=== PATIENT | male | born 1965 | race Caucasian/White ===

== ENCOUNTER 2017-12-19 01:15 | Emergency (ER) | payer OTHER ==
[2017-12-19 01:45] VITALS: TEMP 98.6; BMI 32.5
[2017-12-19] MEDS ORDERED: SODIUM CHLORIDE 0.9% 1000 ML INFUS.BAG IV ONE (01:56)
[2017-12-19] MEDS ORDERED: ACETAMINOPHEN 325 MG TABLET (FP) PO ONE (01:56)
[2017-12-19] MEDS ORDERED: KETOROLAC TROMETHAMINE 30 MG/1 ML VIAL IVPUSH ONE (01:56)
--- NOTE | 2017-12-19 02:17 | PDOC ---
History of Present Illness - General History Source: Patient Exam Limitations: No Limitations - History of Present Illness Initial Comments: 12/19/17 02:12 The patient is a 52M with a PMH of HTN who presents to the ER with complaints of a headache. The patient states that he's had a gradual-onset headache that has been steadily worsening, located on his b/l temples, without radiation, not associated with photo or phonophobia, without fever, chills, nausea, vomiting, numbness or tingling. He does admit to generalized weakness that started around 1600 yesterday but denies any changes in his diet. He is compliant with his medications. <Fernandez Mccarthy - Last Filed: 12/19/17 03:36> <Bri Gagnon - Last Filed: 12/19/17 04:20> - General Chief Complaint: Headache Stated Complaint: HEADACHE Time Seen by Provider: 12/19/17 01:40 Past History - Suicide/Smoking/Psychosocial Hx Smoking History: Never smoked Have you smoked in the past 12 months: No Information on smoking cessation initiated: No Hx Alcohol Use: No Drug/Substance Use Hx: No <Fernandez Mccarthy - Last Filed: 12/19/17 03:36> <Bri Gagnon - Last Filed: 12/19/17 04:20> - Past Medical History Allergies/Adverse Reactions: Allergies Allergy/AdvReac Type Severity Reaction Status Date / Time No Known Allergies Allergy Verified 12/19/17 02:53 Home Medications: Ambulatory Orders Carvedilol [Coreg -] 12.5 mg PO BID 12/19/17 Nifedipine [Adalat cc] 90 mg PO DAILY 12/19/17 Review of Systems - Review of Systems Able to Perform ROS?: Yes Comments:: 12/19/17 02:16 GENERAL/CONSTITUTIONAL: Positive for weakness. No fever or chills. HEAD, EYES, EARS, NOSE AND THROAT: No change in vision. No ear pain or discharge. No sore throat. CARDIOVASCULAR: No chest pain, palpitations, or lightheadedness. RESPIRATORY: No cough, wheezing, shortness of breath, or hemoptysis. GASTROINTESTINAL: No nausea, vomiting, diarrhea, constipation, or abdominal pain. GENITOURINARY: No dysuria, frequency, hematuria, or change in urination. MUSCULOSKELETAL: No joint or muscle swelling or pain. No neck or back pain. SKIN: No rash or lesions. NEUROLOGIC: Positive for headache. No numbness, tingling, weakness, loss of consciousness, or change in strength/sensation. ENDOCRINE: No increased thirst. No abnormal weight change. HEMATOLOGIC/LYMPHATIC: No anemia, easy bleeding, or history of blood clots. ALLERGIC/IMMUNOLOGIC: No hives or skin allergy. Is the patient limited Hungarian proficient: No <Fernandez Mccarthy - Last Filed: 12/19/17 03:36> *Physical Exam - Vital Signs Last Vital Signs Temp Pulse Resp BP Pulse Ox 98.6 F 83 18 140/79 98 12/19/17 01:42 12/19/17 01:42 12/19/17 01:42 12/19/17 01:42 12/19/17 01:42 - Physical Exam Comments: 12/19/17 02:18 GENERAL: Well developed, well nourished. Awake and alert. No acute distress. HEENT: Normocephalic, atraumatic. Hearing grossly normal. Moist mucous membranes. PERRLA, EOMI. No conjunctival pallor. Sclera are non-icteric. NECK: Supple. Full ROM. No JVD. CARDIOVASCULAR: Regular rate and rhythm. No murmurs, rubs, or gallops. PULMONARY: No evidence of respiratory distress. Lungs clear to auscultation bilaterally. No wheezing, rales or rhonchi. ABDOMINAL: Soft. Non-tender. Non-distended. No rebound or guarding. GENITOURINARY: No CVA tenderness bilaterally. MUSCULOSKELETAL: Normal range of motion at all joints. No bony deformities or tenderness. EXTREMITIES: No cyanosis. No clubbing. No edema. No calf tenderness or swelling. SKIN: Warm and dry. Normal capillary refill. No rashes. No jaundice. NEUROLOGICAL: Alert, awake, appropriate. Cranial nerves 2-12 intact. Normal speech. Gait is normal without ataxia. PSYCHIATRIC: Cooperative. Good eye contact. Appropriate mood and affect. <Fernandez Mccarthy - Last Filed: 12/19/17 03:36> - Vital Signs Last Vital Signs Temp Pulse Resp BP Pulse Ox 98.6 F 83 18 140/79 98 12/19/17 01:42 12/19/17 01:42 12/19/17 01:42 12/19/17 01:42 12/19/17 01:42 <Bri Gagnon - Last Filed: 12/19/17 04:20> ED Treatment Course - LABORATORY CBC & Chemistry Diagram: 12/19/17 02:30 12/19/17 02:30 <Mary LouchristopherFernandez - Last Filed: 12/19/17 03:36> - LABORATORY CBC & Chemistry Diagram: 12/19/17 02:30 12/19/17 02:30 - ADDITIONAL ORDERS Additional order review: Laboratory Results 12/19/17 02:30 Sodium 144 Potassium 4.8 Chloride 116 H Carbon Dioxide 21 Anion Gap 7 L BUN 48 H Creatinine 2.8 H Creat Clearance w eGFR 24.11 Random Glucose 118 H Calcium 7.9 L Total Bilirubin < 0.1 L AST 32 ALT 22 Alkaline Phosphatase 126 H Total Protein 5.9 L Albumin 2.5 L 12/19/17 02:30 RBC 3.18 L MCV 97.2 H MCHC 33.6 RDW 11.8 L MPV 8.2 Neutrophils % 60.5 Lymphocytes % 27.6 Monocytes % 9.3 Eosinophils % 2.2 Basophils % 0.4 - Medications Given in the ED: ED Medications Discontinued Medications Generic Name Dose Route Start Last Admin Trade Name Freq PRN Reason Stop Dose Admin Acetaminophen 650 mg 12/19/17 01:56 12/19/17 02:15 Tylenol - PO 12/19/17 01:57 650 mg ONCE ONE Administration Ketorolac Tromethamine 15 mg 12/19/17 01:56 12/19/17 02:15 Toradol Injection - IVPUSH 12/19/17 01:57 15 mg ONCE ONE Administration Metoclopramide HCl 10 mg 12/19/17 03:43 12/19/17 04:00 Reglan Injection - IVPUSH 12/19/17 03:44 10 mg ONCE ONE Administration Sodium Chloride 1,000 ml 12/19/17 01:56 12/19/17 02:15 Normal Saline - IV 12/19/17 01:57 1,000 ml ONCE ONE Administration <Bri Gagnon - Last Filed: 12/19/17 04:20> Medical Decision Making - Medical Decision Making 12/19/17 02:19 The patient is a 52M with a PMH of HTN who presents to the ER with complaints of a worsening headache. He denies FND. Will treat h/a with pain control and fluids. Will order basic labs to ensure no electrolyte abnormality or end organ damage 2/2 to hx of HTN.\ 12/19/17 03:36 CBC and CMP significant for hgb of 10.4 and Cr of 2.8. Pt unaware of any previous kidney pathology history. <Fernandez Mccarthy - Last Filed: 12/19/17 03:36> *DC/Admit/Observation/Transfer <Fernandez Mccarthy - Last Filed: 12/19/17 03:36> - Discharge Dispostion Decision to Admit order: No <Bri Gagnon - Last Filed: 12/19/17 04:20> Diagnosis at time of Disposition: Tension type headache, unspecified - Discharge Dispostion Disposition: HOME Condition at time of disposition: Improved - Referrals Referrals: Jose Thomson DO [Staff Physician] - Karthikeyan Daniels MD [Staff Physician] - - Post Discharge Activity Forms/Work/School Notes: Back to Work
[2017-12-19] MEDS ORDERED: ACETAMINOPHEN 325 MG TABLET (FP) ONE (02:25)
[2017-12-19] MEDS ORDERED: KETOROLAC TROMETHAMINE 15 MG/ML VIAL ONE (02:25)
--- NOTE | 2017-12-19 02:34 | PDOC ---
Attending Attestation - HPI HPI: 12/19/17 03:42 Patient is a 52 year old male with a significant past medical history of HTN, who presents to the ED with complaints of head pain. Patient reports head pain began yesterday and has gradually increased in intensity over time prompting him to come into the ED for further evaluation. He reports the head pain is located on his temples bilaterally but does state that it does not radiate. Patient reports experiencing associated symptoms of weakness that began at 4 pm yesterday evening. Denies chest pain. Sob. Denies nausea, vomiting. Denies contact with sick individuals, out of state travelling. Denies trauma to affected area, vision changes. Allergies: None Social history: No smoking. No alcohol. No illicit drugs. Surgical history: None PMD: None <Angel Mcgraw - Last Filed: 12/19/17 03:43> - Resident Resident Name: Fernandez Mccarthy - ED Attending Attestation I have performed the following: I have examined & evaluated the patient, The case was reviewed & discussed with the resident, I agree w/resident's findings & plan - Physicial Exam PE: 12/19/17 04:17 Agree with resident exam - Medical Decision Making 12/19/17 04:17 I spoke to Project Construction Assistant Manager of the patient, Dr. Jennifer Shipman. He tells me that a biospy revealed that the pt has IgA nephropathy, and that his Creatinine is 2.5 at baseline. He feels that pt is stable for d/c and doesn't require admission for his renal issues. Pt's WARE is improved and he will be discharged home. <Bri Gagnon - Last Filed: 12/19/17 04:19>
[2017-12-19 02:43] LABS: BASO % 0.4 % (0-2.0); EOS % 2.2 % (0-4.5); HEMATOCRIT 30.9 % (35.4-49); HEMOGLOBIN 10.4 GM/dL (11.7-16.9); LYMPH % 27.6 % (8-40); MCH 32.6 pg (25.7-33.7); MCHC 33.6 g/dl (32.0-35.9); MEAN CELL VOLUME 97.2 fl (80-96); MEAN PLT VOLUME 8.2 fl (7.5-11.1); MONO % 9.3 % (3.8-10.2); NEUT % 60.5 % (42.8-82.8); PLATELET COUNT 228 K/MM3 (134-434); RBC 3.18 M/mm3 (4.00-5.60); RDW 11.8 % (11.9-15.9); WHITE BLOOD COUNT 9.4 K/mm3 (4.0-10.0)
[2017-12-19 03:04] LABS: ALBUMIN 2.5 g/dl (3.4-5.0); ALK PHOS 126 U/L (45-117); ANION GAP 7 (8-16); BLOOD UREA NITROGEN 48 mg/dL (7-18); CALCIUM 7.9 mg/dL (8.5-10.1); CHLORIDE 116 mmol/L (98-107); CO2 21 mmol/L (21-32); CREATININE 2.8 mg/dL (0.7-1.3); GLUCOSE,RANDOM 118 mg/dL (74-106); POTASSIUM 4.8 mmol/L (3.5-5.1); SGOT/AST 32 U/L (15-37); SGPT/ALT 22 U/L (12-78); SODIUM 144 mmol/L (136-145); TOT PROT 5.9 g/dl (6.4-8.2)
[2017-12-19 03:14] LABS: BILIRUBIN,TOTAL < 0.1 mg/dL (0.2-1.0)
[2017-12-19] MEDS ORDERED: METOCLOPRAMIDE HCL INJECTION 10 MG/2 ML VIAL IVPUSH ONE (03:43)
[2017-12-19] MEDS ORDERED: METOCLOPRAMIDE HCL INJECTION 10 MG/2 ML VIAL ONE (04:00)
[2017-12-19 05:06] VITALS: BP 137/72; PULSE 74
== END 2017-12-19 05:05 | disposition home or self-care (01) ==
LOC: JER 01:15
PROC: 3E033GC Introduction of Other Therapeutic Substance into Peripheral Vein, Percutaneous Approach (ICD-10-PCS; principal; 2017-12-19)
PROC: 3E0333Z Introduction of Anti-inflammatory into Peripheral Vein, Percutaneous Approach (ICD-10-PCS; 2017-12-19)
DX: G44.209 Tension-type headache, unspecified, not intractable (principal); I10 Essential (primary) hypertension
CPT/HCPCS: 36415; 80053; 85025; 96374; 96375; 99282-25; J7030

== ENCOUNTER 2018-07-23 21:51 | Emergency (ER) | payer OTHER ==
[2018-07-23 22:00] VITALS: BP 144/78; PULSE 57; TEMP 97.8; BMI 27.0
[2018-07-23 22:13] LABS: URINE APPEARANCE CLEAR; URINE BILIRUBIN NEGATIVE (<2.0 mg/dL); URINE COLOR COLORLESS; URINE GLUCOSE (UA) NEGATIVE (NEGATIVE); URINE KETONE NEGATIVE (NEGATIVE); URINE LEUK ESTERASE NEGATIVE (NEGATIVE); URINE NITRITE NEGATIVE (NEGATIVE); URINE PROTEIN NEGATIVE (NEGATIVE); URINE UROBILINOGEN NEGATIVE mg/dL (0.2-1.0)
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
--- NOTE | 2018-07-23 23:47 | PDOC ---
Attending Attestation - HPI HPI: 07/23/18 23:58 The patient is a 52 year old male, with a significant past medical history of nephrolithiasis, who presents to the emergency department with, 1 day of LLQ pain ranking a 7/10 with associated nausea. Pain initially onset as left sided chest pain. He denies any recent fevers, chills, headache or dizziness. He denies any recent diarrhea or constipation. He denies any recent dysuria, frequency, urgency or hematuria. Allergies: NKDA Primary Care Physician:OH Thalapillil - Physicial Exam PE: 07/23/18 23:58 GENERAL: Awake, alert, and fully oriented, in no acute distress HEAD: No signs of trauma NECK: Normal ROM, supple, no lymphadenopathy, JVD, or masses LUNGS: Breath sounds equal, clear to auscultation bilaterally. No wheezes, and no crackles HEART: Regular rate and rhythm, normal S1 and S2, no murmurs, rubs or gallops +ABDOMEN: LLQ pain. Soft, normoactive bowel sounds. No guarding, no rebound. No masses +BACK: Left side tenderness with palpation and percussion. EXTREMITIES: Normal range of motion, no edema. No clubbing or cyanosis. No cords, erythema, or tenderness NEUROLOGICAL: Cranial nerves II through XII grossly intact. Normal speech, normal gait SKIN: Warm, Dry, normal turgor, no rashes or lesions noted. <Estrella Key - Last Filed: 07/23/18 23:58> - Medical Decision Making EXAM: Abdomen/T?Pelvis CT w/o contrast IMPRESSION: Mild left hyronephrosis and perinephric inflammation may be due to a congenital UPJ structure. 4 mm stone in a dilated calyx but no ureteral stone. Reported by: Roshan Mccarthy MD 07/24/2018 01:04 07/24/18 01:16 <Charlette Gonzalez - Last Filed: 07/24/18 01:16> - Resident Resident Name: Mame Hernandez - ED Attending Attestation I have performed the following: I have examined & evaluated the patient, The case was reviewed & discussed with the resident, I agree w/resident's findings & plan - Medical Decision Making 07/24/18 00:53 UA normal; no blood in the urine. 07/24/18 01:17 Patient Name: RYAN ROCHA THIS IS A PRELIMINARY REPORT FROM IMAGING SUPERVISOR MAIL CARRIERS DATE OF SERVICE: 2018-07-24 00:41:21 IMAGES: [id number] EXAM: ABDOMEN \T\ PELVIS CT W/O CONTR HISTORY: Left lower quadrant pain COMPARISON: None. FINDINGS: Lung bases are clear. The visualized cardiac chambers are normal size and configuration. There is mild left hydronephrosis and perinephric inflammation without hydroureter. There is a 4 mm stone in a dilated midpole calyx, but no ureteral stone. Findings could indicate a congenital UPJ stricture. Normal unenhanced liver, gallbladder, pancreas, spleen , adrenal glands and right kidney. The stomach and abdominal small and large bowel are normal. There is no aortic aneurysm. There is no significant retroperitoneal lymphadenopathy. The pelvic small and large bowel are normal. The appendix is normal. The urinary bladder and prostate gland are normal. No pelvic free fluid is identified. There is no significant pelvic lymphadenopathy. IMPRESSION: Mild left hydronephrosis and perinephric inflammation may be due to a congenital UPJ stricture. 4 mm stone in a dilated calyx but no ureteral stone. One or more of the following dose reduction techniques were used: automated exposure control, adjustment of the mA and/or kV according to patient size, use of iterative reconstructive technique. THIS DOCUMENT HAS BEEN ELECTRONICALLY SIGNED 07/24/18 01:18 UA normal; no blood and no sign of infection. <Bri Gagnon - Last Filed: 07/24/18 01:18> Attestations - Attestations 07/23/18 23:59 Documentation prepared by Estrella Key, acting as medical program specialist for Bri Gagnon MD. <Estrella Key - Last Filed: 07/23/18 23:58>
[2018-07-24 00:42] LABS: BASO % 0.2 % (0-2.0); EOS % 0.4 % (0-4.5); HEMATOCRIT 42.4 % (35.4-49); HEMOGLOBIN 14.5 GM/dL (11.7-16.9); LYMPH % 9.6 % (8-40); MCH 32.6 pg (25.7-33.7); MCHC 34.2 g/dl (32.0-35.9); MEAN CELL VOLUME 95.4 fl (80-96); MEAN PLT VOLUME 9.5 fl (7.5-11.1); NEUT % 80.8 % (42.8-82.8); PLATELET COUNT 251 K/MM3 (134-434); RBC 4.45 M/mm3 (4.00-5.60); RDW 12.9 % (11.9-15.9); WHITE BLOOD COUNT 11.1 K/mm3 (4.0-10.0)
[2018-07-24 00:55] LABS: INR 0.97 (0.83-1.09); PROTHROMBIN TIME (PATIENT) 11.5 SEC (9.7-13.0)
[2018-07-24 00:58] LABS: ACTIVATED PTT 31.2 SECONDS (25.2-36.5)
[2018-07-24] MEDS ORDERED: KETOROLAC TROMETHAMINE 30 MG/1 ML VIAL IVPUSH ONE (01:18)
[2018-07-24] MEDS ORDERED: METHOCARBAMOL 500 MG TABLET PO ONE (01:19)
[2018-07-24 01:34] LABS: ALBUMIN 3.6 g/dl (3.4-5.0); ALK PHOS 104 U/L (45-117); ANION GAP 5 MMOL/L (8-16); BILIRUBIN,TOTAL 0.2 mg/dL (0.2-1); BLOOD UREA NITROGEN 15 mg/dL (7-18); CALCIUM 8.4 mg/dL (8.5-10.1); CHLORIDE 101 mmol/L (98-107); CO2 31 mmol/L (21-32); CREATININE 1.6 mg/dL (0.55-1.3); GLUCOSE,RANDOM 110 mg/dL (74-106); SGOT/AST 21 U/L (15-37); SGPT/ALT 19 U/L (13-61); SODIUM 137 mmol/L (136-145); TOT PROT 7.5 g/dl (6.4-8.2)
[2018-07-24] MEDS ORDERED: METHOCARBAMOL 500 MG TABLET ONE (01:54)
[2018-07-24] MEDS ORDERED: KETOROLAC TROMETHAMINE 30 MG/1 ML VIAL ONE (01:54)
== END 2018-07-24 02:20 | disposition home or self-care (01) ==
LOC: JER 21:51
PROC: 3E0333Z Introduction of Anti-inflammatory into Peripheral Vein, Percutaneous Approach (ICD-10-PCS; principal; 2018-07-23)
DX: Q62.39 Other obstructive defects of renal pelvis and ureter (principal); Q62.0 Congenital hydronephrosis
CPT/HCPCS: 36415; 74176-TC; 80053; 81003; 85025; 85610; 85730; 87086; 96374; 99282-25

== ENCOUNTER 2018-09-25 08:31 | Day surgery (SDC) | payer OTHER ==
[2018-09-22 11:53] VITALS: BMI 28.0
[2018-09-25] MEDS ORDERED: IBUPROFEN 800 MG/8 ML IJ IVPB PRN (11:49)
[2018-09-25] MEDS ORDERED: oxyCODONE HCL 5 MG TABLET PO PRN (11:49)
[2018-09-25] MEDS ORDERED: ONDANSETRON 4 MG/2 ML VIAL IVPUSH PRN (11:49)
[2018-09-25] MEDS ORDERED: LACTATED RINGERS SOLUTION 1,000 ML IV SCH (12:00)
[2018-09-25] MEDS ORDERED: PROPOFOL 20 ML ONE (12:07)
[2018-09-25] MEDS ORDERED: LIDOCAINE HCL/PF 2% SDV 5ML VIAL ONE (12:07)
[2018-09-25] MEDS ORDERED: MIDAZOLAM HCL 2 MG/2 ML SINGLE DOSE VIAL ONE (12:07)
[2018-09-25] MEDS ORDERED: IOHEXOL 300 MG/ML INFUS..BTL IV ONE (12:35)
--- NOTE | 2018-09-25 13:12 | OP ---
Operative Note - Note: Operative Date: 09/25/18 Pre-Operative Diagnosis: left hydronephrosis with renal colic Operation: cystoscopy/left retrograde pyelogram/left ureteroscopy/left stent placement Findings: left ureteropelvic stricture with grade 4/5 hydronephrosis Post-Operative Diagnosis: Other (left upj obstruction) Surgeon: Gabriele Gomez Anesthesia: General Drains & Tubes with Location: 11/27 left ureteral stent
[2018-09-25] MEDS ORDERED: oxyCODONE HCL 5 MG TABLET ONE (14:56)
[2018-09-25] MEDS ORDERED: oxyCODONE HCL 5 MG TABLET PO ONE (15:00)
[2018-09-25 16:17] VITALS: BP 149/80; PULSE 60; TEMP 97.9
--- NOTE | 2018-09-25 17:44 | OP ---
DATE OF OPERATION: 09/25/2018 PREOPERATIVE DIAGNOSIS: Left hydronephrosis with renal colic. POSTOPERATIVE DIAGNOSIS: Left hydronephrosis with renal colic. PROCEDURE: Cystoscopy, left retrograde pyelogram, left ureteroscopy, and left ureteral stent placement. ATTENDING SURGEON: Philip Gomez MD ANESTHESIA: General. OPERATION: As follows, the patient has a longstanding history of left flank pain with intermittent episodes of nausea. There is a question of gross hematuria in the past. Patient is noted to have a hydronephrosis on CAT scan. The patient is explained all risks and benefits of the procedure. The patient is brought into the operating room and placed in a supine position on the operating room table. Antibiotics and anesthesia were administered. At this point, the patient was placed in the dorsal lithotomy position and prepped and draped in the usual sterile manner. Cystoscopy was performed, then the bladder was investigated. No evidence of neoplasm within the bladder. There was 1 to 2+ bladder trabeculation, and 2 to 3+ obstructive prostate is noted. The left ureteral orifice was identified and the retrograde pyelogram performed. A grade 4/5 hydronephrosis is noted with what appears to be a stricture. Wire is passed up into the kidney at this time, and ureteroscopy using a rigid ureteroscope was performed. No evidence of neoplasm at the area of the stricture is noted. At this point, the ureteroscope was removed, and stent was left in place. The patient will be observed with the stent to see if his pain is improved with the stent. Further treatment will depend on how the patient tolerates the stent and if there is improvement in his condition. Also, renal function test will be performed on the kidney with the stent in place to gauge whether or not there is significant renal function present in this kidney. The patient tolerated the procedure very well. No complications were noted. DISPOSITION: The disposition of the patient is to the recovery room. PHILIP CARBAJAL M.D. [id number]
== END 2018-09-25 16:00 | disposition home or self-care (01) ==
LOC: JASU-SURG 08:31
PROVIDERS: ATTEND Urology
PROC: 0T778DZ Dilation of Left Ureter with Intraluminal Device, Via Natural or Artificial Opening Endoscopic (ICD-10-PCS; principal; 2018-09-25 11:00)
DX: N13.30 Unspecified hydronephrosis (principal); N23 Unspecified renal colic
CPT/HCPCS: 76000-TC-FY; 94760

== ENCOUNTER 2018-10-23 08:45 | Day surgery (SDC) | payer OTHER ==
[2018-10-20 14:00] VITALS: BMI 29.0
[2018-10-23] MEDS ORDERED: MIDAZOLAM HCL 2 MG/2 ML SINGLE DOSE VIAL ONE ×2 (10:56→11:11)
[2018-10-23] MEDS ORDERED: KETOROLAC TROMETHAMINE 30 MG/1 ML VIAL ONE (10:57)
[2018-10-23] MEDS ORDERED: DEXAMETHASONE SOD PHOSPHATE 4 MG/1 ML VIAL ONE (10:57)
[2018-10-23] MEDS ORDERED: LIDOCAINE HCL/PF 2% SDV 5ML VIAL ONE (11:20)
--- NOTE | 2018-10-23 11:39 | OP ---
Operative Note - Note: Operative Date: 10/23/18 Pre-Operative Diagnosis: Left renal stone Operation: Left ESWL Findings: 7 mm Left mid pole renal stone Surgeon: Gabriele Gomez Anesthesia: Fractional Estimated Blood Loss (mls): 0 Operative Report Dictated: Yes
[2018-10-23 13:29] VITALS: BP 111/63; PULSE 56; TEMP 97.4
--- NOTE | 2018-10-24 10:34 | OP ---
DATE OF OPERATION: 10/23/2018 PREOPERATIVE DIAGNOSIS: Left renal stone. POSTOPERATIVE DIAGNOSIS: Left renal stone. PROCEDURE: Left extracorporeal shock wave lithotripsy. ATTENDING: Philip Carbajal M.D. ANESTHESIA: Fractional. PROCEDURE: The patient was brought in the operating room and placed in the supine position on the operating room table. Ultrasonography and fluoroscopy were performed. A 7 mm left mid pole stone was identified. Anesthesia and preoperative antibiotics were then administered. Shock wave lithotripsy was performed, 2500 impulses 17 joules of power were administered to the stone. Excellent fragmentation of the stone was noted under real time ultrasonography and fluoroscopy. No complications were noted. Patient tolerated the procedure very well. The disposition was to the recovery room. PHILIP CARBAJAL M.D. [id number]
== END 2018-10-23 13:30 | disposition home or self-care (01) ==
LOC: JASU-SURG 08:45
PROVIDERS: ATTEND Urology
PROC: 0TF4XZZ Fragmentation in Left Kidney Pelvis, External Approach (ICD-10-PCS; principal; 2018-10-23 11:00)
DX: N20.0 Calculus of kidney (principal)

== ENCOUNTER 2020-01-08 09:53 | Emergency (ER) | payer OTHER ==
[2020-01-08 10:09] VITALS: BP 122/73; PULSE 61; TEMP 98.3; BMI 28.0
--- NOTE | 2020-01-08 10:10 | PDOC ---
Rapid Medical Evaluation Chief Complaint: Back Pain Time Seen by Provider: 01/08/20 10:06 Medical Evaluation: Allergies Allergy/AdvReac Type Severity Reaction Status Date / Time No Known Allergies Allergy Verified 01/08/20 10:06 01/08/20 10:08 I have performed a brief in-person evaluation of this patient. The patient presents with a chief complaint of:lower and upper back pain x few days. No neuro or sxs. No trauma Pertinent physical exam findings:stable, well harper I have ordered the following:nothing The patient will proceed to the ED for further evaluation. Discharge Disposition - Diagnosis Back pain Qualifiers: Back pain location: low back pain Chronicity: unspecified Back pain laterality: unspecified Sciatica presence: without sciatica Qualified Code(s): M54.5 - Low back pain - Referrals - Patient Instructions - Post Discharge Activity
[2020-01-08] MEDS ORDERED: KETOROLAC TROMETHAMINE 30 MG/1 ML VIAL IM ONE (10:37)
--- NOTE | 2020-01-08 10:41 | PDOC ---
History of Present Illness - General Chief Complaint: Back Pain Stated Complaint: LOWER BACK PAIN Time Seen by Provider: 01/08/20 10:06 History Source: Patient Exam Limitations: No Limitations - History of Present Illness Initial Comments: 01/08/20 10:38 CHIEF COMPLAINT: Lower back pain and left upper back pain which worsens with breathing HISTORY OF PRESENT ILLNESS: 54-year-old male past medical history of hyperlipidemia presents emergency department for evaluation of acute on chronic lower back pain with left upper back pain which worsens with deep inspiration. Patient reports the pain is nonradiating and denies any neurosensory deficits. He denies incontinence of urine or stool, urinary retention, saddle anesthesia, foot drop, history of IV drug use or history of cancer. REVIEW OF SYSTEMS: GENERAL: Afebrile, denies any weakness RESPIRATORY: No cough, wheezing, or hemoptysis. CARDIAC: No chest pain or shortness of breath MUSCULOSKELETAL: Pain to generalized lower back. No point tenderness. Pain worse on left compared to right. SKIN : No erythema, no bruising, no deformity. GI/: Denies any abdominal pain, no urinary difficulty, incontinence or urinary retention. RECTAL: Denies any difficulty this A.m. NEUROLOGICAL: Denies any numbness or tingling. No neurosensory deficits. PHYSICAL EXAM: GENERAL: The patient is awake, alert, and fully oriented, in no acute distress. RESPIRATORY: Lungs clear bilaterally, no rhonchi wheezes or crackles CARDIAC: S1-S2 audible, no murmur rub or gallop MUSCULOSKELETAL: Pain to generalized lower back, nonradiating, no tingling or sensory deficit. Less than 2 second cap refill, +2 pedal pulses. No spinal point tenderness. Normal reflexive and no deficits to sensation or strength. GI/: Abdomen soft, nontender, nondistended. No rebound tenderness. No masses palpable. RECTAL: Deferred patient with no neurological findings SKIN: Warm, Dry, normal turgor, no erythema, no edema no bruising. Past History - Medical History Allergies/Adverse Reactions: Allergies Allergy/AdvReac Type Severity Reaction Status Date / Time No Known Allergies Allergy Verified 01/08/20 10:06 Home Medications: Ambulatory Orders Ibuprofen [Motrin -] 400 mg PO PRN PRN 10/20/18 Anemia: No Asthma: No Cancer: No Cardiac Disorders: No CVA: No COPD: No CHF: No Dementia: No Diabetes: No GI Disorders: No Disorders: Yes (KIDNEY STONES, CYST LEFT KIDNEY) HTN: No Hypercholesterolemia: No Liver Disease: No Seizures: No Thyroid Disease: No - Immunization History Immunization Up to Date: Yes - Psycho-Social/Smoking History Smoking History: Never smoked Have you smoked in the past 12 months: No - Substance Abuse Hx (Audit-C & DAST Scrn) How often the patient has a drink containing alcohol: Never Score: In Men: 4 or > Positive; In Women: 3 or > Positive: 0 Screen Result (Pos requires Nsg. Audit-10AR): Negative In the last yr the pt used illegal drug/Rx for NonMed reason: No Score: Yes response is considered Positive: 0 Screen Result (Positive result requires Nsg. DAST-10): Negative *Physical Exam - Vital Signs Last Vital Signs Temp Pulse Resp BP Pulse Ox 98.3 F 61 18 122/73 100 01/08/20 10:07 01/08/20 10:07 01/08/20 10:07 01/08/20 10:07 01/08/20 10:07 ED Treatment Course - RADIOLOGY Radiology Studies Ordered: Category Date Time Status CHEST PA & LAT [RAD] Stat Radiology 01/08/20 10:37 Ordered Medical Decision Making - Medical Decision Making 01/08/20 10:40 A/P: 54-year-old male with acute on chronic lower back pain and left sided upper back pain No palpable muscle spasms present in the paraspinous muscles bilaterally Full range of motion with flexion extension and rotation of the lumbar spine Full sensation present distal to pain Lungs clear to auscultation bilaterally No chest tenderness noted Chest x-ray to rule out infiltrate Toradol 30 mg IM now Reassess 01/08/20 13:11 Chest x-ray as read by me: Amina aaron. Cardiac silhouette is within normal limits. Lung mcmillan clear without any evidence of infiltrate or consolidation. Patient's pain is improved after receiving Toradol. I will discharge patient home to follow-up with his primary doctor for continued evaluation of acute on chronic lower back pain. 01/08/20 13:12 I discussed the physical exam findings, ancillary test results and final diagnoses with the patient. I answered all of the patient's questions. The patient was satisfied with the care received and felt comfortable with the discharge plan and treatment plan. The patient will call their primary care physician within 24 hours to arrange follow-up and will return to the Emergency Department with any new, persistent or worsening symptoms. Portions of this note have been documented using voice recognition software. As a result, errors may occur in the hydrator process. Effort has been made to correct all grammatical and hydrator error, but some may have been missed which may produce sporadic inaccurate hydrator or nonsensical phrases. Discharge - Discharge Information Problems reviewed: Yes Clinical Impression/Diagnosis: Back pain Qualifiers: Back pain location: low back pain Chronicity: unspecified Back pain laterality: unspecified Sciatica presence: without sciatica Qualified Code(s): M54.5 - Low back pain Condition: Stable Disposition: HOME - Admission No - Follow up/Referral - Patient Discharge Instructions Additional Instructions: Rest. Take Tylenol or Motrin as needed for pain. Follow manufacturers instructions for appropriate dosage. Warm moist heat applied to your back may help alleviate pain. Return to emergency department for discoloration of the foot, numbness or tingling to the foot, worsening pain, or any other concerns. Thank you very much for choosing us to provide your emergent healthcare needs. - Post Discharge Activity Work/Back to School Note: Back to Work
[2020-01-08] MEDS ORDERED: KETOROLAC TROMETHAMINE 30 MG/1 ML VIAL ONE (11:01)
== END 2020-01-08 13:15 | disposition home or self-care (01) ==
LOC: JERFT 09:53
PROC: 3E0233Z Introduction of Anti-inflammatory into Muscle, Percutaneous Approach (ICD-10-PCS; principal; 2020-01-08)
DX: M54.5 Low back pain (principal)
CPT/HCPCS: 71046-TC-FY; 99284-25

== ENCOUNTER 2021-08-14 16:35 | Emergency (ER) | payer OTHER ==
[2021-08-14 16:43] VITALS: BP 121/71; PULSE 74; TEMP 98; BMI 27.4
[2021-08-14] MEDS ORDERED: KETOROLAC TROMETHAMINE 30 MG/1 ML VIAL IM ONE (19:56)
[2021-08-14] MEDS ORDERED: KETOROLAC TROMETHAMINE 30 MG/1 ML VIAL ONE (19:59)
== END 2021-08-14 20:23 | disposition home or self-care (01) ==
LOC: JER 16:35
PROC: 3E0233Z Introduction of Anti-inflammatory into Muscle, Percutaneous Approach (ICD-10-PCS; principal; 2021-08-14)
DX: R51.9 Headache, unspecified (principal)
CPT/HCPCS: 70450-TC; 96372; 99284-25

== ENCOUNTER 2023-05-02 04:12 | Day surgery (SDC) | payer OTHER ==
[2023-04-25 13:15] VITALS: BMI 29.0
[2023-05-02] MEDS ORDERED: MIDAZOLAM HCL 2 MG/2 ML SINGLE DOSE VIAL ONE ×2 (14:10→14:12)
[2023-05-02] MEDS ORDERED: FENTANYL CITRATE/PF 50 MCG/ML VIAL ONE (14:10)
[2023-05-02 14:40] VITALS: RESP 16
[2023-05-02 15:45] VITALS: BP 117/58; PULSE 60; TEMP 98.2
== END 2023-05-02 15:50 | disposition home or self-care (01) ==
LOC: JASU-SURG 04:12
PROVIDERS: ATTEND Urology
PROC: 0TF3XZZ Fragmentation in Right Kidney Pelvis, External Approach (ICD-10-PCS; principal; 2023-05-02 13:00)
DX: N20.0 Calculus of kidney (principal)